=== PATIENT | male | born 1940 | race Caucasian/White ===

== ENCOUNTER 2019-11-13 19:24 | Emergency (ER) | payer MEDICARE, BC ==
[~2019-11-13] VITALS: Ht 180.3 cm; Wt 85.3 kg
--- NOTE | 2019-11-13 19:30 | NUR ---
PT BIBA C/O GLF. PT ENDORSES R SHOULDER PAIN, R EYEBROW LACERATION, R KNEE PAIN AND ABRASION. DENIES HT. PT AAOX4, VSS, RESPIRATIONS EVEN AND UNLABORED ON RA W/ NAD NOTED. PT CONNECTED TO THE MONITOR AND POX
[2019-11-13] MEDS ORDERED: TDAP [DIPH/PERTUSSIS/TET] 0.5 ML VIAL IM ONE ×2 (19:52→20:00)
[2019-11-13] MEDS ORDERED: HYDROCODONE/APAP 5/325MG TABLET ONE (19:52)
[2019-11-13] MEDS ORDERED: BACI/NEOM/POLY B OINT PKT 1 UDPKT PACKET TP ONE (20:00)
[2019-11-13] MEDS ORDERED: HYDROCODONE/APAP 5/325MG TABLET PO ONE (20:00)
--- NOTE | 2019-11-13 20:02 | NUR ---
EMT AT BEDSIDE FOR WOUND CARE
[2019-11-13 21:07] VITALS: BP 142/76
--- NOTE | 2019-11-13 21:07 | NUR ---
Patient discharged to home in stable condition. Written and verbal after care instructions given. Patient verbalizes understanding of instruction.pt. ambulatory with a steady gait
== END 2019-11-13 21:08 | disposition home or self-care (01) ==
LOC: ER 19:26
DX: S42.151A Displaced fracture of neck of scapula, right shoulder, initial encounter for closed fracture (principal); S01.81XA Laceration without foreign body of other part of head, initial encounter; S60.221A Contusion of right hand, initial encounter; S50.311A Abrasion of right elbow, initial encounter; S80.211A Abrasion, right knee, initial encounter; S60.511A Abrasion of right hand, initial encounter; S60.512A Abrasion of left hand, initial encounter; I10 Essential (primary) hypertension; Z60.2 Problems related to living alone; W19.XXXA Unspecified fall, initial encounter; Y93.01 Activity, walking, marching and hiking; Y92.89 Other specified places as the place of occurrence of the external cause; Y99.8 Other external cause status
CPT/HCPCS: 12013; 73030; 90471; 90715; 99283; A6403 ×2